=== PATIENT | male | born 1975 ===

== ENCOUNTER 2020-05-14 15:25 | Emergency (ER) | payer OTHER ==
[~2020-05-14] VITALS: Ht 180.3 cm; Wt 90.7 kg
== END 2020-05-14 17:15 | disposition home or self-care (01) ==
LOC: ER 15:25
DX: S61.012A Laceration without foreign body of left thumb without damage to nail, initial encounter (principal); S60.416A Abrasion of right little finger, initial encounter; Z23 Encounter for immunization; Z87.891 Personal history of nicotine dependence; W45.8XXA Other foreign body or object entering through skin, initial encounter
CPT/HCPCS: 12001; 90471; 90714; 99282